=== PATIENT | male | born 1965 | race Caucasian/White ===

== ENCOUNTER 2017-02-17 08:51 | Day surgery (SDC) | payer BC ==
[~2017-02-17] VITALS: Ht 175.3 cm; Wt 86.2 kg
[2017-02-17] MEDS ORDERED: SUCCINYLCHOLINE CHLORIDE 20 MG/ML(QUELICIN) IVP ONE (11:31)
[2017-02-17] MEDS ORDERED: NS 1000 ML BAG IV ONE (11:31)
[2017-02-17] MEDS ORDERED: LIDOCAINE 1% 10 MG/ML, 20 ML MDV INJ ONE (11:31)
[2017-02-17] MEDS ORDERED: ONDANSETRON HCL 4 MG/2 ML VIAL IVP ONE ×2 (11:31→13:45)
[2017-02-17] MEDS ORDERED: SEVOFLURANE 15 MIN GAS INH ONE (11:31)
[2017-02-17] MEDS ORDERED: PROPOFOL 200MG/ 20ML VIAL (DIPRIVAN) IV ONE (11:31)
[2017-02-17] MEDS ORDERED: fentaNYL CITRATE/PF 100 MCG/2 ML AMP IVP ONE (11:31)
[2017-02-17] MEDS ORDERED: MIDAZOLAM HCL 5 MG/5 ML VIAL IVP ONE (11:31)
[2017-02-17] MEDS ORDERED: MUPIROCIN 2% TOPICAL OINTMENT 22 GM TP ONE (11:31)
[2017-02-17] MEDS ORDERED: EPINEPHrine 1 MG/ML AMP IVP ONE (11:31)
[2017-02-17] MEDS ORDERED: LR 1,000 ML IV.SOLN IV ONE (11:31)
[2017-02-17] MEDS ORDERED: NS IRRIG SOLN 1000 ML IR ONE (11:31)
[2017-02-17] MEDS ORDERED: MEPERIDINE HCL/PF 100 MG/ML AMP IM ONE (11:31)
[2017-02-17] MEDS ORDERED: DEXAMETHASONE SOD PHOSPHATE 4 MG/ML VIAL IVP ONE (11:31)
[2017-02-17] MEDS ORDERED: LIDOCAINE/EPI 1% 1:100000 20 ML VIAL INJ ONE (11:31)
[2017-02-17] MEDS ORDERED: OXYMETAZOLINE HCL 0.05% NASAL SPRAY NS ONE (11:31)
[2017-02-17] MEDS ORDERED: MEPERIDINE HCL/PF 25 MG/ML DISP.SYRIN IVP PRN (13:45)
[2017-02-17] MEDS ORDERED: HYDROmorphone 1 MG INJ. 1 MG/ML AMPUL IVP PRN (13:45)
[2017-02-17] MEDS ORDERED: fentaNYL CITRATE/PF 100 MCG/2 ML AMP IVP PRN (13:45)
[2017-02-17 17:15] VITALS: BP_SYST 156
== END 2017-02-17 15:50 | disposition home or self-care (01) ==
LOC: SMU 08:51 → SDS 08:51
PROVIDERS: ATTEND Otolaryngology
DX: J34.2 Deviated nasal septum (principal); J32.9 Chronic sinusitis, unspecified
CPT/HCPCS: 30140; 30520; 31255; 31256; 31296; 87070; 87075; 87101; C1726; J7120; J0171; J0330; J1100; J2001; J2175; J2250; J2405; J2704; J3010; J7030